=== PATIENT | male | born 1960 | race African-American/Black ===

== ENCOUNTER 2017-11-22 01:17 | Inpatient (IN) | payer BC, OTHER ==
[~2017-11-22] VITALS: Ht 175.3 cm; Wt 116.9 kg
[2017-11-22 02:04] LABS: Basophils # (auto) 0 uL; Basophils % (auto) 0.2 % (0.0-2.0); Eosinophils # (auto) 0.2 uL; Hematocrit 44.3 % (41.0-53.0); Hemoglobin 14.7 g/dL (13.5-17.5); Lymphocytes % (auto) 38.6 % (10.0-50.0); Mean Corpuscular Hemoglobin 31.4 pg (28.0-32.0); Mean Corpuscular Hgb Conc. 33.3 g/dL (32.0-36.0); Mean Corpuscular Volume 94.3 fL (80.0-100.0); Monocytes # (auto) 0.4 uL; Monocytes % (auto) 5.6 % (0.0-12.0); Neutrophils # (auto) 4.1 uL; Neutrophils % (auto) 53.6 % (37.0-80.0); Nucleated Red Blood Cells % 0.1 %; Platelet Count (auto) 246 10^3/uL (140-450); Red Blood Cells 4.69 10^6/uL (4.5-5.90); Red Cell Distribution Width 15.7 % (11.8-14.3); White Blood Cell 7.7 10^3/uL (4.4-10.8)
[2017-11-22] MEDS ORDERED: NALBUPHINE HCL 10 MG/1ml INJECTION IV ONE (02:15)
[2017-11-22] MEDS ORDERED: ONDANSETRON HCL 4 MG/2 ML VIAL IV ONE (02:15)
[2017-11-22 02:19] LABS: Albumin 3.6 g/dL (3.4-5.0); BUN/Creatinine Ratio 13.2; Calcium 9.2 mg/dL (8.5-10.1); Potassium 3.7 mmol/L (3.5-5.1)
[2017-11-22 02:22] LABS: Bilirubin, Total 0.8 mg/dL (0.2-1.0); Total Protein 7.7 g/dL (6.4-8.2)
[2017-11-22 02:36] LABS: Magnesium 2.1 mg/dL (1.6-2.6)
[2017-11-22 02:43] LABS: INR 0.95 (0.9-1.15); Partial Thromboplastin Time 26.9 sec (22.64-33.71); Prothrombin Time 10.3 sec (9.37-12.3)
[2017-11-22] MEDS ORDERED: DEXTROSE (50%) 50ML SYRG IV PRN (09:00)
[2017-11-22] MEDS ORDERED: ACETAMINOPHEN 325 MG TAB PO PRN (09:00)
[2017-11-22] MEDS ORDERED: TEMAZEPAM 15 MG CAP PO PRN (09:00)
[2017-11-22] MEDS ORDERED: SODIUM CHLORIDE 0.9% 1,000 ML IV SCH (09:00)
[2017-11-22] MEDS ORDERED: HYDROcodone-ACET 5/325MG TAB PO PRN (09:00)
[2017-11-22] MEDS ORDERED: SODIUM CHLORIDE 0.9% 3,000 ML IV ONE (09:00)
[2017-11-22] MEDS ORDERED: ONDANSETRON HCL 4 MG/2 ML VIAL IV PRN (09:00)
[2017-11-22] MEDS ORDERED: metroNIDAZOLE 500MG/100ML 100 ML IV ONE (09:00)
[2017-11-22] MEDS ORDERED: MORPHINE SULFATE 8mg/ml INJ SDV IV PRN (09:00)
[2017-11-22] MEDS ORDERED: LEVOFLOXACIN 500MG 100 ML IV SCH (10:00)
[2017-11-22] MEDS: PIOGLITAZONE HYDROCHLORIDE 30 MG TAB PO SCH (10:00)
[2017-11-22] MEDS: ZINC SULFATE 220 MG CAP PO SCH (10:00)
[2017-11-22] MEDS: MULTIPLE VITAMIN TAB PO SCH (10:14)
[2017-11-22] MEDS: FAMOTIDINE 20 MG TAB PO SCH ×2 (10:15→23:44)
[2017-11-22] MEDS: HCTZ 25 MG TAB PO SCH (10:15)
[2017-11-22] MEDS: LISINOPRIL 10 MG TAB PO SCH (10:16)
[2017-11-22] MEDS: ASCORBIC ACID 500 MG TAB PO SCH ×2 (10:18→23:44)
[2017-11-22] MEDS: InsuLIN REG 1unit/0.01ml Soln (100units/ml) SC SCH ×3 (11:30→22:00)
[2017-11-22] MEDS: ACCU-CHEK COMFORT CURVE STRIP VI SCH ×3 (11:39→22:25)
[2017-11-22] MEDS: SODIUM CHLORIDE 0.9% 1,000 ML IV SCH ×2 (13:24→14:00)
[2017-11-22 14:00] VITALS: BP 128/80
[2017-11-22] MEDS: metroNIDAZOLE 500MG/100ML 100 ML IV SCH ×2 (14:00→23:44)
[2017-11-22 14:10] LABS: Urine Bacteria NONE SEEN /hpf (None Seen); Urine Blood Negative /uL (Negative); Urine WBC 8 /hpf (0 - 3)
[2017-11-22 16:26] VITALS: BP 111/63
[2017-11-22] MEDS ORDERED: CYCL1TAB18 PO (18:22)
[2017-11-22] MEDS ORDERED: LISI-285 PO (18:22)
[2017-11-22] MEDS ORDERED: ATOR10TA52 PO (18:22)
[2017-11-22] MEDS ORDERED: ALLO300T2 PO (18:22)
[2017-11-22] MEDS ORDERED: METO-169 PO (18:22)
[2017-11-22] MEDS ORDERED: PIO30T PO (18:22)
[2017-11-22 20:00] VITALS: BP 127/70
[2017-11-22 22:00] VITALS: BP 127/70
[2017-11-22] MEDS: CYCLOBENZAPRINE HCL 10 MG TAB PO SCH (23:45)
[2017-11-22] MEDS: ATORVASTATIN 20 MG TAB PO SCH (23:45)
[2017-11-22] MEDS: METOPROLOL SUCCINATE XL 50 MG TAB PO SCH (23:45)
[2017-11-23] MEDS: SODIUM CHLORIDE 0.9% 1,000 ML IV SCH ×3 (04:40→21:20)
[2017-11-23 05:00] VITALS: BP 123/73
[2017-11-23] MEDS: metroNIDAZOLE 500MG/100ML 100 ML IV SCH ×3 (06:22→22:24)
[2017-11-23] MEDS: InsuLIN REG 1unit/0.01ml Soln (100units/ml) SC SCH ×4 (06:30→22:00)
[2017-11-23] MEDS: ACCU-CHEK COMFORT CURVE STRIP VI SCH ×4 (06:30→22:00)
[2017-11-23 06:37] LABS: Basophils # (auto) 0 uL; Basophils % (auto) 0.3 % (0.0-2.0); Eosinophils # (auto) 0.1 uL; Eosinophils % (auto) 3.1 % (0.0-7.0); Hematocrit 39.7 % (41.0-53.0); Hemoglobin 13.5 g/dL (13.5-17.5); Lymphocytes # (auto) 1.8 uL; Lymphocytes % (auto) 47.1 % (10.0-50.0); Mean Corpuscular Hemoglobin 32.1 pg (28.0-32.0); Mean Corpuscular Hgb Conc. 33.9 g/dL (32.0-36.0); Mean Corpuscular Volume 94.6 fL (80.0-100.0); Monocytes # (auto) 0.4 uL; Monocytes % (auto) 10.3 % (0.0-12.0); Neutrophils # (auto) 1.5 uL; Neutrophils % (auto) 39.2 % (37.0-80.0); Nucleated Red Blood Cells % 0.1 %; Platelet Count (auto) 219 10^3/uL (140-450); Red Blood Cells 4.19 10^6/uL (4.5-5.90); Red Cell Distribution Width 15.7 % (11.8-14.3); White Blood Cell 3.7 10^3/uL (4.4-10.8)
[2017-11-23 06:46] LABS: Calcium 8.7 mg/dL (8.5-10.1)
[2017-11-23 06:49] LABS: Albumin 3.1 g/dL (3.4-5.0); BUN/Creatinine Ratio 7.7
[2017-11-23 06:52] LABS: Bilirubin, Total 0.8 mg/dL (0.2-1.0); Total Protein 6.7 g/dL (6.4-8.2)
[2017-11-23] MEDS ORDERED: LEVOFLOXACIN 500MG 100 ML IV ONE (07:03)
[2017-11-23] MEDS ORDERED: fentaNYL CITRATE 100 MCG/2 ML VL ONE (07:13)
[2017-11-23] MEDS ORDERED: MEPERIDINE HCL (50 MG/ML) 1 ML VIAL ONE (07:14)
[2017-11-23] MEDS ORDERED: ROCURONIUM 10MG/ML 10ML VIAL IV ONE (07:14)
[2017-11-23] MEDS ORDERED: MIDAZOLAM HCL 1MG/1ML-2 ML VIAL ONE (07:14)
[2017-11-23] MEDS ORDERED: PROPOFOL 10 MG/ML 20 ML IV ONE (07:14)
[2017-11-23] MEDS ORDERED: ONDANSETRON HCL 4 MG/2 ML VIAL ONE (07:14)
[2017-11-23] MEDS ORDERED: NEOSTIGMINE 1 MG/ML INJ (10mg/10ML VIAL) ONE (08:09)
[2017-11-23] MEDS ORDERED: GLYCOPYRROLATE 0.2 MG/ML 1ML VIAL ONE (08:09)
[2017-11-23] MEDS ORDERED: MORPHINE SULFATE 8mg/ml INJ SDV IV PRN (08:15)
[2017-11-23] MEDS ORDERED: ACCU-CHEK COMFORT CURVE STRIP VI ONE (08:15)
[2017-11-23] MEDS ORDERED: METOCLOPRAMIDE HCL 5MG/ml INJ 2ml VIAL IV ONE (08:15)
[2017-11-23] MEDS ORDERED: POVIDONE IODINE 10 % TOPICAL OINT 30GM TOP ONE (08:26)
[2017-11-23] MEDS ORDERED: EPINEPHrine HCL 0.5 ML NEB ONE (08:58)
[2017-11-23] MEDS ORDERED: SODIUM CHLORIDE 0.9 % NEB SOLN 3ML NEB ONE (08:58)
[2017-11-23] MEDS ORDERED: EPINEPHrine HCL 0.5 ML NEB NEB ONE (09:00)
[2017-11-23] MEDS: ZINC SULFATE 220 MG CAP PO SCH (11:19)
[2017-11-23] MEDS: PIOGLITAZONE HYDROCHLORIDE 30 MG TAB PO SCH (11:20)
[2017-11-23] MEDS: HCTZ 25 MG TAB PO SCH (11:20)
[2017-11-23] MEDS: FAMOTIDINE 20 MG TAB PO SCH ×2 (11:21→22:24)
[2017-11-23] MEDS: MULTIPLE VITAMIN TAB PO SCH (11:21)
[2017-11-23] MEDS: LISINOPRIL 10 MG TAB PO SCH (11:21)
[2017-11-23] MEDS: ASCORBIC ACID 500 MG TAB PO SCH ×2 (11:21→22:26)
[2017-11-23 11:36] VITALS: BP 118/74
[2017-11-23 17:00] VITALS: BP 111/67
[2017-11-23] MEDS: CYCLOBENZAPRINE HCL 10 MG TAB PO SCH (22:00)
[2017-11-23] MEDS: METOPROLOL SUCCINATE XL 50 MG TAB PO SCH (22:00)
[2017-11-23] MEDS: ATORVASTATIN 20 MG TAB PO SCH (22:25)
[2017-11-23 22:26] VITALS: BP 125/73
[2017-11-24 05:10] VITALS: BP 129/69
[2017-11-24] MEDS: metroNIDAZOLE 500MG/100ML 100 ML IV SCH ×2 (05:59→14:25)
[2017-11-24] MEDS: SODIUM CHLORIDE 0.9% 1,000 ML IV SCH ×2 (05:59→14:25)
[2017-11-24] MEDS: InsuLIN REG 1unit/0.01ml Soln (100units/ml) SC SCH ×2 (06:29→11:30)
[2017-11-24] MEDS: ACCU-CHEK COMFORT CURVE STRIP VI SCH ×2 (06:29→11:30)
[2017-11-24 07:00] VITALS: BP 108/67
[2017-11-24] MEDS ORDERED: LEVOFLOXACIN 500MG 100 ML IV SCH (10:00)
[2017-11-24] MEDS: ZINC SULFATE 220 MG CAP PO SCH (10:14)
[2017-11-24] MEDS: FAMOTIDINE 20 MG TAB PO SCH (10:15)
[2017-11-24] MEDS: LISINOPRIL 10 MG TAB PO SCH (10:16)
[2017-11-24] MEDS: HCTZ 25 MG TAB PO SCH (10:16)
[2017-11-24] MEDS: MULTIPLE VITAMIN TAB PO SCH (10:17)
[2017-11-24] MEDS: PIOGLITAZONE HYDROCHLORIDE 30 MG TAB PO SCH (10:17)
[2017-11-24] MEDS: ASCORBIC ACID 500 MG TAB PO SCH (10:17)
[2017-11-24 12:40] VITALS: BP 123/71
[2017-11-24 13:00] VITALS: BP 123/71
[2017-11-24 13:14] VITALS: BP 108/67
== END 2017-11-24 15:15 | disposition home or self-care (01) | DRG 419 ==
LOC: ER 01:17 → OVERFLOW 01:18 → WEST WING 13:53
PROVIDERS: ADMIT Internal Medicine; ATTEND Family Medicine
PROC: 0FT44ZZ Resection of Gallbladder, Percutaneous Endoscopic Approach (ICD-10-PCS; principal; 2017-11-23 07:40)
DX: K80.00 Calculus of gallbladder with acute cholecystitis without obstruction (principal); E11.21 Type 2 diabetes mellitus with diabetic nephropathy; I13.10 Hypertensive heart and chronic kidney disease without heart failure, with stage 1 through stage 4 chronic kidney disease, or unspecified chronic kidney disease; E11.22 Type 2 diabetes mellitus with diabetic chronic kidney disease; E66.9 Obesity, unspecified; E78.00 Pure hypercholesterolemia, unspecified; R94.5 Abnormal results of liver function studies; E86.0 Dehydration; N18.2 Chronic kidney disease, stage 2 (mild); Z68.38 Body mass index [BMI] 38.0-38.9, adult; Z83.3 Family history of diabetes mellitus; Z80.0 Family history of malignant neoplasm of digestive organs
CPT/HCPCS: 36415; 71045; 74176; 76705; 80053; 81001; 82150; 82247; 82962; 83036; 83605; 83690; 83735; 84443; 85025; 85610; 85730; 86850; 86900; 86901; 87040; 93005; 93306; 94640; 94761; 96361; 96365; 96375; J1956; J2250; J2270; J2405; J2704; J3490

== ENCOUNTER 2021-05-17 17:58 | Emergency (ER) | payer BC ==
[~2021-05-17] VITALS: Ht 175.3 cm; Wt 108.9 kg
[~2021-05-17 17:58] MED LIST: ALLO300T2 PO; ATOR10TA52 PO; CYCL-839 PO; LISI-285 PO; METO-289 PO; PIO30T PO
[2021-05-17 18:46] LABS: Basophils # (auto) 0 10 ^3/uL (0-0.2); Basophils % (auto) 0.6 % (0.0-2.0); Eosinophils # (auto) 0.2 10 ^3/uL (0-0.8); Eosinophils % (auto) 4.2 % (0.0-7.0); Hematocrit 44.6 % (41.0-53.0); Hemoglobin 14.6 g/dL (13.5-17.5); Lymphocytes # (auto) 2.3 10 ^3/uL (0.4-5.4); Lymphocytes % (auto) 46.1 % (10.0-50.0); Mean Corpuscular Hemoglobin 30.6 pg (28.0-32.0); Mean Corpuscular Hgb Conc. 32.8 g/dL (32.0-36.0); Mean Corpuscular Volume 93.3 fL (80.0-100.0); Monocytes # (auto) 0.4 10 ^3/uL (0-1.3); Monocytes % (auto) 7.9 % (0.0-12.0); Neutrophils # (auto) 2.1 10 ^3/uL (1.6-8.6); Neutrophils % (auto) 41.2 % (37.0-80.0); Nucleated Red Blood Cells % 0.1 %; Red Blood Cells 4.78 10^6/uL (4.5-5.90); Red Cell Distribution Width 16.2 % (11.8-14.3)
[2021-05-17 19:20] LABS: Albumin 3.6 g/dL (3.4-5.0); Anion Gap 5 (5-15); Blood Urea Nitrogen 20 mg/dL (7-18); Calcium 9.2 mg/dL (8.5-10.1); Carbon Dioxide 31 mmol/L (21-32); Chloride 101 mmol/L (98-107); Glucose 130 mg/dL (74-106); Potassium 3.6 mmol/L (3.5-5.1); Sodium 137 mmol/L (136-145)
[2021-05-17 19:25] LABS: Alanine Aminotransferase 35 U/L (16-61); Alkaline Phosphatase 92 U/L (45-117); Aspartate Aminotransferase 22 U/L (15-37); BUN/Creatinine Ratio 13.1; Bilirubin, Total 0.6 mg/dL (0.2-1.0); GFR African American 60 mL/min; GFR Non-African American 50 mL/min; Total Protein 7.8 g/dL (6.4-8.2)
[2021-05-17 23:05] VITALS: BP 154/90
== END 2021-05-17 22:46 | disposition home or self-care (01) ==
LOC: ER 17:58
DX: R07.89 Other chest pain (principal); I12.9 Hypertensive chronic kidney disease with stage 1 through stage 4 chronic kidney disease, or unspecified chronic kidney disease; E11.22 Type 2 diabetes mellitus with diabetic chronic kidney disease; N18.9 Chronic kidney disease, unspecified; Z88.0 Allergy status to penicillin; Z79.899 Other long term (current) drug therapy
CPT/HCPCS: 36415; 71046; 80053; 84484; 85025; 93005